=== PATIENT | male | born 1930 | race African-American/Black ===

== ENCOUNTER 2018-11-19 18:24 | Emergency (ER) | payer OTHER ==
[~2018-11-19] VITALS: Ht 182.9 cm; Wt 112.0 kg
[~2018-11-19 18:24] MED LIST: CARVEDILOL25 MG PO; FUROSEMIDE 20 M20 MG PO; KEPPRA 500 MG500 M2 PO; LIPITOR80 MG PO; LISINOPRIL40 MG PO; METOLAZONE 2.52.5 M1 PO; NOVOLOG MI100 UNIT/2 SUBQ
[2018-11-19 19:37] LABS: ABSOLUTE NEUTROPHILS 2.6 thou/uL (1.4-8.2); BASOPHILS 1.3 % (0.0-2.0); EOSINOPHILS 12.4 % (0.0-3.0); HEMATOCRIT 31.8 % (42.0-52.0); HEMOGLOBIN 10.4 gm/dL (14.0-18.0); LYMPHOCYTES 32.3 % (24.0-44.0); MCH 28.7 pg (26.0-34.0); MCHC 32.9 g/dL (28.0-37.0); MCV 87.4 fL (80.0-100.0); MONOCYTES 10.2 % (1.0-8.0); PLATELET COUNT 235 thou/uL (150-400); POLYS 43.8 % (36.0-66.0); RBC 3.63 mil/uL (4.50-6.00); RDW 16.1 % (10.5-14.5)
[2018-11-19 19:38] LABS: CALCIUM 8.3 mg/dL (8.5-10.1); CREATININE 1.4 mg/dL (0.7-1.3); POTASSIUM 3.9 mmol/L (3.5-5.1)
--- NOTE | 2018-11-19 20:39 | NUR ---
vascular access team unable to place picc line this evening, discussed with sister that pt will need to come back tomorrow for IR to place. Pt has functional piv in left hand. Discussed with Rodrigo in ER.
[2018-11-19 22:31] VITALS: BP 161/71
[2018-11-21] MEDS ORDERED: TYLENOL EXTRA500 MG PO (10:36)
[2018-11-21] MEDS ORDERED: ERTAPENEM1 GM IM (10:37)
[2018-11-21] MEDS ORDERED: ALBUTEROL2.5 MG/31 INH (10:37)
[2018-11-21] MEDS ORDERED: COLACE100 MG PO (10:37)
[2018-11-21] MEDS ORDERED: FLOMAX0.4 MG PO (10:38)
[2018-11-21] MEDS ORDERED: PEPCID20 MG PO (10:38)
[2018-11-21] MEDS ORDERED: LOPERAMIDE 2 MG2 M1 PO (10:39)
[2018-11-21] MEDS ORDERED: ACULAR 0.5% EYE5 ML OPHTHALMIC (10:39)
[2018-11-21] MEDS ORDERED: REFRESH LIQUIGE15 ML OPHTHALMIC (10:40)
[2018-11-21] MEDS ORDERED: PRO-STAT AWC LI30 ML PO (10:40)
[2018-11-21] MEDS ORDERED: SIMBRINZA 1%-0.28 ML OPHTHALMIC (10:41)
[2018-11-21] MEDS ORDERED: SENNA8.6 MG PO (10:41)
[2018-11-21] MEDS ORDERED: TRAMADOL 50 MG50 MG PO (10:42)
[2018-11-21] MEDS ORDERED: TRAVATAN Z2.5 ML OPHTHALMIC (10:42)
[2018-11-21] MEDS ORDERED: VANCO1GM IV (10:42)
[2018-11-21] MEDS ORDERED: VITAMINC500 PO (10:43)
[2018-11-21] MEDS ORDERED: VITAMIN B-1100 M1 PO (10:43)
== END 2018-11-19 22:32 | disposition home or self-care (01) ==
LOC: ER 18:24
PROVIDERS: Emergency Medicine
DX: Z45.2 Encounter for adjustment and management of vascular access device (principal); E11.9 Type 2 diabetes mellitus without complications

== ENCOUNTER → 2018-11-21 | Outpatient (CLI) | payer OTHER ==
[~2018-11-21] VITALS: Ht 165.1 cm; Wt 92.5 kg
[~2018-11-21] MED LIST changes: +ACULAR 0.5% EYE5 ML OPHTHALMIC; +ALBUTEROL2.5 MG/31 INH; +COLACE100 MG PO; +ERTAPENEM1 GM IM; +FLOMAX0.4 MG PO; +LOPERAMIDE 2 MG2 M1 PO; +PEPCID20 MG PO; +PRO-STAT AWC LI30 ML PO; +REFRESH LIQUIGE15 ML OPHTHALMIC; +SENNA8.6 MG PO; +SIMBRINZA 1%-0.28 ML OPHTHALMIC; +TRAMADOL 50 MG50 MG PO; +TRAVATAN Z2.5 ML OPHTHALMIC; +TYLENOL EXTRA500 MG PO; +VANCO1GM IV; +VITAMIN B-1100 M1 PO; +VITAMINC500 PO
[2018-11-21 10:30] VITALS: BP 126/69
== END | disposition home or self-care (01) ==
LOC: SPEC 06:34
DX: Z45.2 Encounter for adjustment and management of vascular access device (principal); N39.0 Urinary tract infection, site not specified; E11.9 Type 2 diabetes mellitus without complications; Z86.73 Personal history of transient ischemic attack (TIA), and cerebral infarction without residual deficits; Z79.899 Other long term (current) drug therapy; Z98.890 Other specified postprocedural states

== ENCOUNTER → 2019-06-15 | Outpatient (CLI) | payer OTHER | LOC: RAD 12:13 | DX: R13.12 Dysphagia, oropharyngeal phase (principal) ==